=== PATIENT | male | born 1990 | race Two or more races ===

== ENCOUNTER 2019-12-25 17:51 | Inpatient (IN) | payer OTHER ==
[~2019-12-25] VITALS: Ht 170.2 cm; Wt 68.0 kg
[2019-12-25] MEDS ORDERED: DICY20TA (18:12)
[2019-12-25] MEDS ORDERED: PANTOPRAZOLE SO20 MG (18:13)
[2019-12-25] MEDS ORDERED: MI-ACID 400-40355 ML (18:14)
[2019-12-25] MEDS ORDERED: PEPCID AC20 MG (18:14)
[2019-12-25] MEDS ORDERED: HYDROXYZIN10 MG/5 ML (18:14)
[2019-12-25] MEDS ORDERED: ZEGERID 20 MG1 EACH (18:14)
[2019-12-25] MEDS ORDERED: ZOFRAN8 MG (18:15)
[2019-12-25] MEDS ORDERED: PREVACID30 MG (18:15)
[2019-12-25] MEDS ORDERED: CARAFATE1 GM/10 ML (18:16)
[2019-12-26] MEDS ORDERED: MESALAMINE800 MG PO (14:04)
== END 2019-12-30 12:58 | disposition home or self-care (01) | DRG 446 ==
LOC: ER 17:51 → SEC-K 12-26 09:02 → SURG 12-26 09:02
PROVIDERS: ADMIT Surgery; ATTEND Surgery
PROC: CF241ZZ Tomographic (Tomo) Nuclear Medicine Imaging of Gallbladder using Technetium 99m (Tc-99m) (ICD-10-PCS; principal; 2019-12-26)
DX: K81.2 Acute cholecystitis with chronic cholecystitis (principal)

== ENCOUNTER 2023-06-13 07:42 | Emergency (ER) | payer OTHER ==
[~2023-06-13] VITALS: Ht 167.6 cm; Wt 59.0 kg
[~2023-06-13 07:42] MED LIST: CARAFATE1 GM/10 ML; DICLOFENAC POTA50 MG PO; DICY20TA; HYDROXYZIN10 MG/5 ML; LEVSIN/SL0.125 MG; MESALAMINE800 MG PO; MI-ACID 400-40355 ML; PANTOPRAZOLE SO20 MG; PEPCID AC10 MG; PEPCID AC20 MG; PREVACID30 MG; ZANAFLEX2 M1 PO; ZEGERID 20 MG1 EACH; ZOFRAN8 MG
[2023-06-13 09:17] LABS: HEMATOCRIT 39.1 % (39.0-48.0); HEMOGLOBIN 13.4 g/dL (13-16.00); MEAN CELL VOLUME 83.3 fL (80.0-100.00); MEAN CORPUSCULAR HEMOGLOBIN 28.6 pg (27.00-32.0); MEAN CORPUSCULAR HGB CONC 34.3 g/dl (32.0-36.0); PLATELET COUNT 298 K/uL (150-450)
[2023-06-13 09:41] LABS: AMYLASE 58 U/L (25-115); LIPASE 36 U/L (13-75)
== END 2023-06-13 11:34 | disposition home or self-care (01) ==
LOC: ER 07:42
PROVIDERS: Emergency Medicine
DX: K29.70 Gastritis, unspecified, without bleeding (principal); K21.9 Gastro-esophageal reflux disease without esophagitis; K31.84 Gastroparesis; Z88.8 Allergy status to other drugs, medicaments and biological substances

== ENCOUNTER 2023-07-25 10:54 | Emergency (ER) | payer OTHER ==
[~2023-07-25] VITALS: Ht 167.6 cm; Wt 68.0 kg
[2023-07-25] MEDS ORDERED: PREVACID30 MG PO (12:09)
[2023-07-25] MEDS ORDERED: PEPCID AC20 MG PO (12:09)
[2023-07-25 13:53] LABS: HEMATOCRIT 42.7 % (39.0-48.0); HEMOGLOBIN 14.2 g/dL (13-16.00); MEAN CELL VOLUME 86.2 fL (80.0-100.00); MEAN CORPUSCULAR HEMOGLOBIN 28.6 pg (27.00-32.0); MEAN CORPUSCULAR HGB CONC 33.2 g/dl (32.0-36.0); PLATELET COUNT 256 K/uL (150-450); RED BLOOD COUNT 4.95 M/uL (4.00-6.00); RED CELL DISTRIBUTION WIDTH 14.9 % (11.5-14.5)
[2023-07-25 14:33] LABS: ALBUMIN 4.4 gm/dL (3.4-5.0); BILIRUBIN TOTAL 1.76 mg/dL (0.3-1.2); CALCIUM 9.7 mg/dL (8.5-10.1); CREATININE SERUM 0.82 mg/dL (0.70-1.30); GFR 109.58; GLOBULINA 4.3 G/DL (2.4-3.5); POTASSIUM 4.42 mEq/L (3.5-5.1); TOTAL PROTEIN 8.7 gm/dL (6.4-8.2)
== END 2023-07-25 16:03 | disposition home or self-care (01) ==
LOC: ER 10:54
PROVIDERS: General Practice
DX: K29.70 Gastritis, unspecified, without bleeding (principal); Z88.8 Allergy status to other drugs, medicaments and biological substances; R11.10 Vomiting, unspecified

== ENCOUNTER 2023-10-12 16:32 | Emergency (ER) | payer OTHER ==
[~2023-10-12] VITALS: Ht 167.6 cm; Wt 68.0 kg
[~2023-10-12 16:32] MED LIST changes: +PEPCID AC20 MG PO; +PREVACID30 MG PO
[2023-10-12] MEDS ORDERED: ACID REDUCER20 M1 PO (17:28)
[2023-10-12] MEDS ORDERED: LEVSIN/SL0.125 MG SL (17:28)
[2023-10-12] MEDS ORDERED: METOCLOPRAMIDE HCL 5 MG/ML VIAL IM STA (18:13)
[2023-10-12] MEDS ORDERED: RINGERS SOLUTION,LACTATED 1,000 ML IV STA (18:14)
[2023-10-12] MEDS ORDERED: FAMOtidine 10 MG/ML (4ML VIAL) IV PUSH STA (18:14)
[2023-10-12] MEDS ORDERED: ONDANSETRON HCL 2 MG/ML VIAL IV STA (18:14)
== END 2023-10-12 20:03 | disposition home or self-care (01) ==
LOC: ER 16:32
DX: K31.84 Gastroparesis (principal); K29.70 Gastritis, unspecified, without bleeding; R11.10 Vomiting, unspecified; Z88.1 Allergy status to other antibiotic agents; Z88.6 Allergy status to analgesic agent

== ENCOUNTER 2024-07-22 23:16 | Emergency (ER) | payer OTHER ==
[~2024-07-22] VITALS: Ht 170.2 cm; Wt 68.0 kg
[~2024-07-22 23:16] MED LIST changes: +ACID REDUCER20 M1 PO; +LEVSIN/SL0.125 MG SL
[2024-07-23] MEDS ORDERED: PROMETHAZINE HCL 50 MG/ML AMPUL IM STA (01:01)
[2024-07-23] MEDS ORDERED: FAMOTIDINE/PF 20 MG/2 ML VIAL IV PUSH STA (01:01)
[2024-07-23] MEDS ORDERED: PROMETHAZINE HCL 50 MG/ML AMPUL IM ONE (01:15)
[2024-07-23] MEDS ORDERED: FAMOTIDINE/PF 20 MG/2 ML VIAL ONE (01:15)
[2024-07-23] MEDS ORDERED: 0.9 % SODIUM CHLORIDE 1,000 ML IV ONE (01:15)
[2024-07-23 01:49] LABS: HEMATOCRIT 44.4 % (39.0-48.0); HEMOGLOBIN 14.5 g/dL (13-16.00); MEAN CELL VOLUME 88.3 fL (80.0-100.00); MEAN CORPUSCULAR HEMOGLOBIN 28.9 pg (27.00-32.0); MEAN CORPUSCULAR HGB CONC 32.8 g/dl (32.0-36.0); PLATELET COUNT 245 K/uL (150-450); RED BLOOD COUNT 5.02 M/uL (4.00-6.00); RED CELL DISTRIBUTION WIDTH 13.9 % (11.5-14.5)
[2024-07-23 04:24] LABS: PH,URINE 7.5 (5.0-8.0); URINE APPEARANCE Clear; URINE BILIRRUBIN Negative (NEGATIVE); URINE BLOOD Negative; URINE COLOR Yellow; URINE GLUCOSE Negative (NEGATIVE); URINE KETONE 15 (NEGATIVE); URINE LEUKOCYTE Negative; URINE NITRATE Negative; URINE PROTEIN 30 (NEGATIVE); URINE UROBILINOGEN 0.2 E.U./dl
[2024-07-23 04:28] LABS: URINE BACTERIA 4.8 uL (0.0-1933); URINE RBC 3.5 uL (0.0-20.8)
[2024-07-23 04:33] LABS: ALBUMIN 4.3 gm/dL (3.4-5.0); BILIRUBIN TOTAL 2.58 mg/dL (0.3-1.2); CALCIUM 9.7 mg/dL (8.5-10.1); CREATININE SERUM 0.89 mg/dL (0.70-1.30); GFR 99.06; GLOBULINA 3.4 G/DL (2.4-3.5); POTASSIUM 4.15 mEq/L (3.5-5.1); TOTAL PROTEIN 7.7 gm/dL (6.4-8.2)
[2024-07-23 04:33] LABS: URINE CAST 0.29 uL (0.0-1.40); URINE EPITHELIAL CELLS 0.9 uL (0.0-38.8); URINE WBC 1.7 uL (0.0-23.2)
[2024-07-23] MEDS ORDERED: PEPCID40 MG PO (05:35)
[2024-07-23] MEDS ORDERED: PROTONIX40 MG PO (05:35)
[2024-07-23] MEDS ORDERED: ZOFRAN8 MG PO (05:35)
[2024-07-23] MEDS ORDERED: METOCLOPRAMIDE10 MG PO ×2 (05:38→05:39)
== END 2024-07-23 05:47 ==
LOC: ER 23:19
PROVIDERS: General Practice
DX: K31.84 Gastroparesis (principal); E86.0 Dehydration; Z88.8 Allergy status to other drugs, medicaments and biological substances

== ENCOUNTER 2025-03-25 19:41 | Emergency (ER) | payer OTHER ==
[~2025-03-25] VITALS: Ht 167.6 cm; Wt 59.0 kg
[~2025-03-25 19:41] MED LIST changes: +METOCLOPRAMIDE10 MG PO; +PEPCID40 MG PO; +PROTONIX40 MG PO; +ZOFRAN8 MG PO
[2025-03-25] MEDS ORDERED: LEVSIN0.125 MG (20:10)
[2025-03-25] MEDS ORDERED: HYOSCYAMINE SULFATE 0.125 MG TAB.SUBL ONE (21:10)
[2025-03-25] MEDS ORDERED: METOCLOPRAMIDE HCL 5 MG/ML VIAL ONE (21:10)
[2025-03-25] MEDS ORDERED: HYOSCYAMINE SULFATE 0.125 MG TAB.SUBL SL ONE (21:15)
[2025-03-25] MEDS ORDERED: 0.9 % SODIUM CHLORIDE 1,000 ML IV ONE (21:15)
[2025-03-25] MEDS ORDERED: METOCLOPRAMIDE HCL 5 MG/ML VIAL IV ONE (21:15)
[2025-03-25 21:34] LABS: BASO % 0.2 % (0.1-1.2); EOS # 0.00 (0.04-0.54); EOS % 0.0 % (0.7-7.0); LYMPH # 1.59 (1.18-3.74); LYMPH % 14.7 % (19.3-53.1); MEAN PLATELET VOLUME 9.80 fl (9.4-12.4); MONO # 1.26 (0.24-0.82); MONO % 11.7 % (4.7-12.5); NEUT # 7.89 (1.56-6.13); NEUT % 73.1 % (34.0-71.1); RED CELL DISTRIBUTION WIDTH 12.9 % (11.6-14.4)
[2025-03-25 22:11] LABS: ALT/SGPT 22.0 U/L (12-78); AST/SGOT 30.0 U/L (15-37); BILIRUBIN TOTAL 2.11 mg/dL (0.3-1.2); BUN CREA RATIO 22.0 (7.0-25.0); CREATININE SERUM 1.1 mg/dL (0.70-1.30); GFR 77.09; GLOBULINA 4.3 G/DL (2.4-3.5); GLUCOSE FASTING 89.0 mg/dL (65-100); OSMOLALITY SERUM 281.0 MOSM/KG (275-295)
[2025-03-25] MEDS ORDERED: LEVSIN/SL0.125 MG SL (23:09)
[2025-03-25] MEDS ORDERED: METOCLOPRAMIDE10 MG PO (23:09)
== END 2025-03-26 00:07 | disposition home or self-care (01) ==
LOC: ER 19:41
PROVIDERS: General Practice
DX: R11.10 Vomiting, unspecified (principal); R10.13 Epigastric pain; K31.84 Gastroparesis; Z88.8 Allergy status to other drugs, medicaments and biological substances